=== PATIENT | female | born 1980 | race Hispanic/Latino ===

== ENCOUNTER → 2018-09-18 | Day surgery (SDC) | payer BC ==
[~2018-09-18] MED LIST: FENTANYL CITRATE/PF 100MCG/2 ML INJ ONE; MIDAZOLAM HCL 2 MG/2 ML VIAL ONE; PROPOFOL IV EMULSION 10 MG/ML 50 ML VIAL ONE
--- OUTSIDE RECORDS SUMMARY | 2018-09-18 06:16 | XMS REPORT ---
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 Allergies, Adverse Reactions, Alerts This patient has no known allergies or adverse reactions. Medications This patient has no known medications. Results Test Description Test Time Test Comments Text Results Atomic Results Result Comments SCR MAMM BILATERAL VIKASH CAD DIGITAL 2018-06-15 09:13:54 - SCR MAMM BILATERAL VIKASH CAD DIGITALBILATERAL FIRST EVER DIGITAL SCREENING MAMMOGRAM 3D/2D WITH CAD: 06/15/2018CLINICAL: Asymptomatic. Digital breast tomosynthesis was performed in addition to routine CC and MLO views. Current mammographic images were evaluated by either a [employer] M-Vu or a [employer] ImageChecker CAD (computer aided detection system). No prior exams were available for comparison. The tissue of both breasts is heterogeneously dense. This may lower the sensitivity of mammography. No suspicious mass, architectural distortion, malignant type calcification, or lymph node abnormality detected. IMPRESSION: NEGATIVEThere is no mammographic evidence of malignancy. Resume annual screening mammography in one year. Julia galindo/cait:06/15/2018 09:13:54 Plasterer Journeyman: Daryl ROSA, [facility]-letter sent: BIRADS 1-2 Normal Mammogram BI-RADS: 1 Negative
[2018-09-18 10:10] VITALS: BP 120/86
== END | disposition home or self-care (01) ==
LOC: OR 06:14
PROVIDERS: ATTEND Internal Medicine Gastroenterology
DX: Z12.11 Encounter for screening for malignant neoplasm of colon (principal); J06.9 Acute upper respiratory infection, unspecified; R01.1 Cardiac murmur, unspecified; F41.9 Anxiety disorder, unspecified; Z80.0 Family history of malignant neoplasm of digestive organs
CPT/HCPCS: 36415; 45378; 84702; J2250; J2704